=== PATIENT | female | born 1985 | race African-American/Black ===

== ENCOUNTER 2016-07-09 17:51 | Emergency (ER) | payer OTHER, MEDICAID ==
[2016-07-09 18:13] VITALS: BP 131/91
[2016-07-09] MEDS ORDERED: IBUPROFEN 600 MG TABLET PO ONE (18:43)
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
== END 2016-07-09 20:14 | disposition home or self-care (01) ==
LOC: ER 17:51
DX: S32.039A Unspecified fracture of third lumbar vertebra, initial encounter for closed fracture (principal); S39.012A Strain of muscle, fascia and tendon of lower back, initial encounter; S29.019A Strain of muscle and tendon of unspecified wall of thorax, initial encounter; M54.9 Dorsalgia, unspecified; M54.5 Low back pain; X58.XXXA Exposure to other specified factors, initial encounter
CPT/HCPCS: 72070; 72110; 99283

== ENCOUNTER → 2016-09-09 | Outpatient (CLI) | payer MEDICAID ==
[2016-09-09 12:09] LABS: CHLAM PCR NOT DETECTED (NOT DETECT)
== END ==
LOC: LAB 10:28
PROVIDERS: ATTEND Nurse Practitioner Acute Care
DX: Z20.2 Contact with and (suspected) exposure to infections with a predominantly sexual mode of transmission (principal)
CPT/HCPCS: 87210; 87491; 87591